=== PATIENT | female | born 1985 | race Two or more races ===

== ENCOUNTER 2025-05-30 09:45 | Emergency (ER) | payer OTHER ==
[~2025-05-30] VITALS: Ht 160 cm; Wt 53.1 kg
[2025-05-30] MEDS ORDERED: LIDOCAINE 1% INJ 50 ML MDV IJ ONE (10:18)
[2025-05-30] MEDS ORDERED: CEPHALEXIN MONOHYDRATE 500 MG CAPSULE PO ONE (10:19)
[2025-05-30] MEDS: CEPHALEXIN MONOHYDRATE 500 MG CAPSULE PO ONE (10:24)
[2025-05-30] MEDS ORDERED: CEPH500C2 PO (11:08)
[2025-05-30 11:29] VITALS: BP 102/68; TEMP 98.1; O2SAT 99
== END 2025-05-30 11:30 | disposition home or self-care (01) ==
LOC: ER 09:50
DX: S61.210A Laceration without foreign body of right index finger without damage to nail, initial encounter (principal); Z88.2 Allergy status to sulfonamides; Z88.8 Allergy status to other drugs, medicaments and biological substances; W26.0XXA Contact with knife, initial encounter; Y93.89 Activity, other specified; Y92.89 Other specified places as the place of occurrence of the external cause; Y99.8 Other external cause status
CPT/HCPCS: 12001; 99283; A6403; J3490